=== PATIENT | female | born 1990 | race Caucasian/White ===

== ENCOUNTER 2022-03-13 09:57 | Outpatient (CLI) | payer BC, SELFPAY ==
[2022-03-13 15:22] LABS: Chlamydia DNA Amplified* NOT DETECTED (No Detected); GC DNA Amplified* NOT DETECTED (No Detected)
== END 2022-03-13 09:58 | disposition home or self-care (01) ==
PROVIDERS: Visit Provider Registered Nurse
DX: N89.8 Other specified noninflammatory disorders of vagina (principal)
CPT/HCPCS: 87252; 87491; 87591

== ENCOUNTER 2024-05-21 12:45 | Outpatient (CLI) | payer BC, SELFPAY ==
--- NOTE | 2024-05-21 13:00 | CRLHL7_ITS ---
For Patients: As a result of the Century Cures Act, medical imaging exams and procedure reports are released immediately into your electronic medical record. You may view this report before your referring provider. If you have questions, please contact your health care provider. INDICATION: Dating ultrasound. FINDINGS: A transabdominal and endovaginal pelvic ultrasound shows a single live intrauterine . Barataria-rump length=0.87 cm corresponding to an EGA of 6 weeks 6 days. cardiac rwhnzqox=750 beats per minute and regular. Probable small subchorionic hemorrhage. Probable corpus luteum cyst in the left ovary. No free fluid in the pelvis. Impression : 1. Single live intrauterine measuring 6 weeks 6 days. Dictated by Nemesio Nguyen MD @ 05/22/2024 10:34:43 AM (Electronically Signed)
== END 2024-05-21 12:46 | disposition home or self-care (01) ==
LOC: US 12:48
PROVIDERS: Visit Provider Obstetrics & Gynecology
DX: Z34.91 Encounter for supervision of normal pregnancy, unspecified, first trimester (principal); Z3A.01 Less than 8 weeks gestation of pregnancy
CPT/HCPCS: 76817

== ENCOUNTER 2024-05-21 14:00 | Outpatient (CLI) | payer BC, SELFPAY ==
[2024-05-21 20:37] LABS: Chlamydia DNA Amplified* NOT DETECTED (No Detected); GC DNA Amplified* NOT DETECTED (No Detected)
[2024-05-26 20:51] LABS: HPV Source Cervix; HPV, High Risk by TMA Not Detected
== END 2024-05-21 14:01 | disposition home or self-care (01) ==
PROVIDERS: Visit Provider Obstetrics & Gynecology
DX: Z34.91 Encounter for supervision of normal pregnancy, unspecified, first trimester (principal); Z12.4 Encounter for screening for malignant neoplasm of cervix; Z3A.01 Less than 8 weeks gestation of pregnancy
CPT/HCPCS: 87491; 87591; 87624; 87625; 88141; 88142

== ENCOUNTER 2024-06-17 13:40 | Outpatient (CLI) | payer BC, SELFPAY | END 2024-06-17 13:41 | disposition home or self-care (01) | PROVIDERS: Visit Provider Obstetrics & Gynecology | DX: Z34.81 Encounter for supervision of other normal pregnancy, first trimester (principal); Z67.11 Type A blood, Rh negative | CPT/HCPCS: 83020; 83021; 85660; 86592; 86703; 86704; 86706; 86762; 86787; 86803; 86850; 86900; 86901; 87086; 87340 ==

== ENCOUNTER 2024-08-21 12:53 | Outpatient (CLI) | payer BC, SELFPAY ==
--- NOTE | 2024-08-21 13:00 | CRLHL7_ITS ---
For Patients: As a result of the Century Cures Act, medical imaging exams and procedure reports are released immediately into your electronic medical record. You may view this report before your referring provider. If you have questions, please contact your health care provider. OBSTETRICAL ULTRASOUND ??? ANATOMY SURVEY INDICATION: anatomy survey. LMP: 03/31/2024 ROSALIE by LMP: 01/05/2025 GESTATIONAL AGE: 20 weeks 3 days TECHNIQUE: Real-time dennis-scale imaging of the fetus was performed transabdominal. FINDINGS: position: Breech Cervix: Visualized Technique: Transabdominal Length of closed cervix: 4.3 cm Placenta position: Anterior Technique: Transabdominal Placenta tip to internal os: 7.2 cm Umbilical cord: 3-vessel cord Placental insertion: Central Amniotic fluid: 5.2 cm SDP (greater than/equal to 2 to less than 8 cm) ANATOMY SURVEY: Observed Structures Cerebellum: 2.1 cm, 20 weeks 6 days Cisterna magna: 4.8 mm Nuchal fold: 4.7 mm Lateral ventricle: 8.8 mm CSP: Yes Midline falx: Yes Choroid plexus: Yes Spine: Yes Stomach: Yes Abdominal cord insert: Yes Urinary bladder: Yes Kidneys: Yes Diaphragm: Yes Nose/lips: Yes Orbital view: Yes Profile: Yes Upper extremities: Yes Lower extremities: Yes Hands: Yes Feet: Yes BIOMETRY BPD: 4.7 cm, 20 weeks 0 days, 33.7% HC: 17.4 cm, 19 weeks 6 days, 19.9% AC: 16.0 cm, 21 weeks 1 day, 67.2% FL: 3.3 cm, 20 weeks 1 day, 31.5% FL/AC: 20.3 HC/AC Ratio: 1.1 heart rate: 130 bpm age by this ultrasound: 20 weeks 3 days ROSALIE by this ultrasound: 01/05/2025 Estimated weight: 363.1 grams (0 pound 13 ounces) Percentile by ROSALIE: 53.6% IMPRESSION: 1) Concordance of clinical and sonographic dating. 2) Normal anatomic survey. 3) Circumvallate placenta is present. SHANTNAU SPICER M.D. Diagnostic Radiologist [employer] [email or web address] DW/Dictated by: Shantanu Spicer MD @ 08/22/2024 5:35:00 PM (Electronically Signed)
== END 2024-08-21 12:54 | disposition home or self-care (01) ==
LOC: US 12:53
PROVIDERS: Visit Provider Obstetrics & Gynecology
DX: Z34.92 Encounter for supervision of normal pregnancy, unspecified, second trimester (principal); Z3A.20 20 weeks gestation of pregnancy
CPT/HCPCS: 76805

== ENCOUNTER 2024-10-14 13:33 | Outpatient (CLI) | payer BC, SELFPAY ==
--- OUTSIDE RECORDS SUMMARY | 2024-10-15 00:33 | XMS_ITS | Clinical Summary ---
Author Organization [facility] Address [address] [place] [address] Care Team Providers Care Well Blower Name Role Phone None Reported, Pcp Primary Care Provider Unavail able Source Comments Patient records contain information from all sites at [facility]. For routine questions regarding patient records, call [phone] during business hours, M-F 8:00 AM - 5:00 PM Central Time. Record requests for emergency care only can be directed to [phone] at any time.[facility] Allergies Active Allergy Reactions Criticality Noted Date Comments Sulfa (Sulfonamide Antibiotics) Hives (Reselect Reaction) 03/25/2009 Medications triamcinolone (KENALOG) 0.1 % cream Apply 1 Application topically 2 (two) times a day for 10 days. Apply to rash on body. 30 g 4 Active metoclopramide (Reglan) 5 mg/5 mL solution Take 10 mL (10 mg total) by mouth 4 (four) times a day as needed for nausea or vomiting for up to 14 days. 480 mL 1 5 Active Active Problems Estimated Date of Delivery Comme nts Yes 01/05/2025 No known active problems Social History Tobacco Use Types Packs/Day Years Used Date Smoking Tobacco: Never Smokeless Tobacco: Never Tobacco Cessation:Counseling Given: Not Answered Alcohol Use Standard Drinks/Week Comments Never 0 (1 standard drink = 0.6 oz pur e alcohol) Estimated Date of Delivery Comme nts Yes 01/05/2025 Sex and Gender Information Value Date Recorded Sex Assigned at Not on file Legal Sex Female 12:41 PM CHANNEL MARKETING SPECIALIST Gender Identity Not on file Sexual Orientation Not on file Last Filed Vital Signs Vital Sign Reading Time Taken Comments Blood Pressure 103/63 05/31/2024 2:45 PM CHANNEL MARKETING SPECIALIST Pulse 91 05/31/2024 2:45 PM CHANNEL MARKETING SPECIALIST Temperature 37.1 C (98.8 F) 05/31/2024 2:45 PM CHANNEL MARKETING SPECIALIST Respiratory Rate 17 05/31/2024 2:45 PM CHANNEL MARKETING SPECIALIST Oxygen Saturation 99% 05/31/2024 2:45 PM CHANNEL MARKETING SPECIALIST Inhaled Oxygen Concentration - - Weight 56.2 kg (124 lb) 05/31/2024 12:15 PM CHANNEL MARKETING SPECIALIST Height 157.5 cm (5' 2) 03/19/2024 9:38 AM CHANNEL MARKETING SPECIALIST Body Mass Index 22.68 03/19/2024 9:38 AM CHANNEL MARKETING SPECIALIST Plan of Treatment Not on file Insurance [facility] Care Teams Well Blower Relationship Specialty Start Date End Date None Reported, Pcp PCP - General Family Medicine 07/05/23
--- OUTSIDE RECORDS SUMMARY | 2024-10-15 00:33 | XMS_ITS | Clinical Summary ---
Author Organization [facility] Address [address], [place] [address] Care Team Providers Care Animal Ride Attendant Name Role Phone Md GENIA Castañeda Primary Care Provider [phone] Source Comments You are receiving this document as you are listed as the primary care provider,follow-up provider, or the patient has been referred to you for consultation.This is in compliance with the Medicare and[facility] EHR Incentive Program,which states Providers who transition their patient to another setting of careor provider of care or refers their patient to another provider of care shouldprovide summary care record for each transition of care or referral. [facility] Allergies Active Allergy Reactions Criticality Noted Date Comments Sulfamethoxazole-Trimethoprim Rash 2008 Medications No known medications Active Problems Problem Noted Date Diagnosed Date Tobacco use 10/30/2016 Marijuana use 10/30/2016 Immunizations Immunization Administration Dates Next Due 9vHPV (Gardasil 9) 10/30/2016 TB Skin Test (PPD) 08/10/2009,07/20/2009 Td 12/19/2004 Tdap 10/30/2016 Family History Medical History Relation Name Comments Hypertension Father Thyroid Disorder Mother graves fibromyalgia Mother Cancer, Other Maternal Grandmother pancre atic fibromyalgia Maternal Grandmother Coronary Artery Disease Paternal Grandfather Diabetes, Type II Paternal Grandfather Hyperlipidemia Paternal Grandfather Hypertension Paternal Grandfather Diabetes, Type II Paternal Grandmother Asthma Sister 2 Cancer, Breast Negative Family History Cancer, Colon Negative Family History Stroke Negative Family History Relation Name Status Comments Father Alive Mother Alive Maternal Grandmother Paternal Grandfather Paternal Grandmother Sister 1 Alive Sister 2 Alive Social History Tobacco Use Types Packs/Day Years Used Date Smoking Tobacco: Former Cigarettes Q uit: 08/21/2018 Smokeless Tobacco: Never Alcohol Use Standard Drinks/Week Comments Not Currently 0 (1 standard drink = 0.6 oz pur e alcohol) few drinks per week Comments No Sex and Gender Information Value Date Recorded Sex Assigned at Not on file Legal Sex Female 1:43 PM CDT Gender Identity Not on file Sexual Orientation Not on file Last Filed Vital Signs Vital Sign Reading Time Taken Comments Blood Pressure 118/68 08/30/2018 9:51 AM CDT Pulse 63 08/30/2018 9:51 AM CDT Temperature 36.7 C (98.1 F) 04/04/2009 1:11 PM CONTRACT ANALYST C: 36.7 C Respiratory Rate - - Oxygen Saturation - - Inhaled Oxygen Concentration - - Weight 48.5 kg (107 lb) 08/30/2018 9:51 AM CDT Height 157.5 cm (5' 2) 10/30/2016 1:29 PM CDT Body Mass Index 19.57 10/30/2016 1:29 PM CDT Plan of Treatment Health Maintenance Due Date Last Done Comments Hep C Screening (Preventive Services) 1992 HepB Vaccine (1) 08/03/2011 HPV Vaccine (2 - 3-dose series) 11/27/2016 10/30/2016 Adult Preventive Visit 10/30/2018 10/30/2016 Cervical Cancer Screening 10/31/20192016, 06/02/2009 COVID-19 Vaccine (1 - 2023-2 5 season) 2023 Influenza Vaccine (Season Ended) 2024 DTaP/Tdap/Td Vaccine (3 - Tdap) 10/30/2026 10/30/2016, 12/19/2004 Zoster/Shingles Vaccine (1 o f 2) 2042 HIV Screening (Preventive Services) Completed 10/30/2016 HepA Vaccine Aged Out No longer eligi ble based on patient's age to complete this topic Hib Vaccine Aged Out No longer eligi ble based on patient's age to complete this topic IPV (Polio) Vaccine Aged Out No longe r eligible based on patient's age to complete this topic MCV4 Vaccine Aged Out No longer eligi ble based on patient's age to complete this topic Meningococcal B Vaccine Aged Out No l onger eligible based on patient's age to complete this topic Pneumococcal Vaccine Aged Out No long er eligible based on patient's age to complete this topic Procedures Procedure Name Priority Date/Time Associated Diagnosis Comments HIV-1 P24 AND HIV-1/HIV-2 ANTIBODIES Routine 10/30/2016 2:37 PM CDT Screen for STD (sexually transmitted disease) ANATOMICAL PATH LIQUID BASED Routine 10/30/2016 2:20 PM CDT from Last 3 Months or Most Recently Relevant to Health Maintenance Results * HIV-1 p24 AND HIV-1/HIV-2 ANTIBODIES (10/30/2016 2:37 PM CDT) HIV-1 p24 Ag and HIV-1/HIV-2 Ab Nonreactive Nonreactive PN SOFT 10/30/2016 2:37 PM CDT 10/30/2016 6:41 PM CDT Narrative PN SOFT - 10/30/2016 7:28 PM CDT Performed at [address] [address] CLIA number [id number] us Adnreea Cardenas PA-C LAB_1 Final Result PN SOFT [address] [place] [id number] * Pap Smear (10/30/2016 2:20 PM CDT) 10/30/2016 2:20 PM CDT Narrative PN SOFT - 11/02/2016 12:19 PM CDT FINAL GYNECOLOGICAL CYTOLOGY REPORT Pathology #: [id number] Date Obtained: 10/30/2016 Date Received: 10/31/2016 INTERPRETATION/RESULTS: Negative for Intraepithelial Lesion or Malignancy. SPECIMEN ADEQUACY: Satisfactory for Evaluation. Endocervical cells/transformation zone component present. Verified on 11/02/2016 by CYNTHIA DESOUZA(ASCP) (electronic signature) CLINICAL NOTES: Abnormal bleeding: No, LMP: 10/18/2016, Menstrual status: None Apply, Current form of therapy: None apply LIQUID BASED PAP SMEAR SPECIMEN TYPE: ROUTINE CERVICAL PAP TEST PLEASE NOTE: The pap smear is a screening test designed to aid in the detection of cervical cancer and its precursor lesions. It is not a diagnostic procedure and should not be used as the sole means of detecting cervical cancer. Both false-positive and false-negative reports may occur. Performed at [address] [address] Andreea Cardenas PA-C LAB_1 Final Result [address] [address] from Last 3 Months or Most Recently Relevant to Health Maintenance [place] [place] [address] Care Teams Animal Ride Attendant Relationship Specialty Start Date End Date Md Castañ[place] [address] PCP - General 07/24/10
--- OUTSIDE RECORDS SUMMARY | 2024-10-15 00:33 | XMS_ITS | Clinical Summary ---
Author Organization [facility] Address [address] [place] [address] Care Team Providers Care Metal Dealer Name Role Phone Pcp, No Primary Care Provider Melanie Bullard Unavailable [phone] Allergies Active Allergy Reactions Criticality Noted Date Comments Sulfa (Sulfonamide Antibiotics) Hives 06/21 Medications SUMAtriptan NASAL (IMITREX) 20 mg/actuation sprayIndication s:Migraine syndrome Usual dose is 1 spray into SINGLE nostril, may repeat in 2 hours as needed. Maximum dose 40 mg in 24 hours. 6 Each 3 07/12/2023 Active ZOLMitriptan (ZOMIG) 5 mg nasal sprayIndication s:Migraine syndrome Inhale 1 [place] into affected nostril(s) every 2 hours if needed for Migraine. Max dose: 10mg in 24 hrs 6 Each 07/25/2023 Active Active Problems Problem Noted Date Diagnosed Date Pityriasis rosea 07/12/2023 Migraine syndrome 07/12/2023 Social History Tobacco Use Types Packs/Day Years Used Date Smoking Tobacco: Never Smokeless Tobacco: Never Tobacco Cessation:Counseling Given: Not Answered Alcohol Use Standard Drinks/Week Comments Not Currently 0 (1 standard drink = 0.6 oz pur e alcohol) occ Social Connections Answer Date Recorded Do you often feel lonely or isolated from those around you? 0 07/12/2023 Financial Resource Strain Answer Date R ecorded Difficulty of Paying Living Expenses 3 07/12/2023 Difficulty of Paying Living Expenses Not on file 07/12/2023 Food Insecurity Answer Date Recorded Do you worry your food will run out before you are able to buy more? 1 07/12/2023 Transportation Needs Answer Date Record ed Does lack of transportation keep you from medica l appointments? 1 07/12/2023 Does lack of transportation keep you from work, meetings or getting things that you need? 1 07/12/2023 Housing Stability Answer Date Recorded What is your housing situation today? 1 07/12/2023 Utilities Answer Date Recorded Do you have trouble paying f or utilities (for example, heat, electricity, water, phone)? 1 07/12/2023 Comments Unknown Sex and Gender Information Value Date Recorded Sex Assigned at Not on file Legal Sex Female 5:26 AM PERFECT BINDER FEEDER OFFBEARER Gender Identity Not on file Sexual Orientation Not on file Obstetrics History Last Filed Vital Signs Vital Sign Reading Time Taken Comments Blood Pressure 130/70 07/12/2023 2:26 PM CDT Pulse 84 07/12/2023 2:26 PM CDT Temperature - - Respiratory Rate - - Oxygen Saturation 98% 07/12/2023 2:26 PM CDT Inhaled Oxygen Concentration - - Weight 63 kg (139 lb) 07/12/2023 2:26 PM CDT Height 157.5 cm (5' 2) 07/12/2023 2:26 PM CDT Body Mass Index 25.42 07/12/2023 2:26 PM CDT Plan of Treatment Health Maintenance Due Date Last Done Comments Tdap 08/03/2003 Depression screening for age 12+ 2004 HIV for age 15-65 08/03/2007 Hepatitis C screening for ag e 18-79 2010 Hepatitis B series for 19+ ( 1 of 3 - 19+ 3-dose series) 08/03/2011 Tetanus booster 2012 Pap test for age 21-65 06/05/2022 06/05/2019 COVID-19 vaccine series (2023- season) 2023 BMI (ht and wt on same day) for age 18+ 07/11/2024 07/12/2023 Influenza Vaccine (Season Ended) 2024 Pneumococcal series for age 6-49 Aged Out No longer eligible based on patient's age to complete this topic Procedures Procedure Name Priority Date/Time Associated Diagnosis Comments MS SQL SERVER DEVELOPER THIN PREP PAP SCREEN IMAGED Routine 06/05/2019 9:00 AM PERFECT BINDER FEEDER OFFBEARER from Last 3 Months or Most Recently Relevant to Health Maintenance Results * MS SQL SERVER DEVELOPER THIN PREP PAP SCREEN IMAGED (06/05/2019 9:00 AM PERFECT BINDER FEEDER OFFBEARER) Case Report Gynecologic Cytology Report Case: [id number] Authorizing Provider: Tami Nichols PA-C Collected: 06/05/2019 0900 Ordering Location: [facility] Received: 06/05/2019 1644 First Screen: Ben Mcginnis Specimen: MS SQL SERVER DEVELOPER ThinPrep Vial Screening, Cervical/Vaginal 06/17/2019 10:33 AM PERFECT BINDER FEEDER OFFBEARER [facility] INTERPRETATION/ RESULT NEGATIVE FOR INTRAEPITHELIAL LESION OR MALIGNANCY (NIL) (none) 06/17/2019 10:33 AM PERFECT BINDER FEEDER OFFBEARER [facility] at 1033 PERFECT BINDER FEEDER OFFBEARER SPECIMEN ADEQUACY Satisfactory for evaluation No endocervical component seen 06/17/2019 10:33 AM PERFECT BINDER FEEDER OFFBEARER [facility] HPV REQUEST HPV if ASCUS 06/17/2019 10:33 AM PERFECT BINDER FEEDER OFFBEARER [facility] Menstrual Status 06/17/2019 10:33 AM PERFECT BINDER FEEDER OFFBEARER [facility] Additional Information 06/17/2019 10:33 AM PERFECT BINDER FEEDER OFFBEARER [facility] Comment: Interpreted at [facility] - [address] [place] [address], [place] [address] Automated Review Successful 06/17/2019 10:33 AM PERFECT BINDER FEEDER OFFBEARER [facility] Comment:Specimen processed s uccessfully by automated television picture tube rebuilder device, ThinPrep Imaging System, [employer] Note The pap test is a screening technique, not a diagnostic procedure. It is used primarily to screen for squamous cancers and precursor lesions. Published studies have shown that it is subject to both false negative and false positive results. The pap test should not be used as the sole means to diagnose or exclude pre-malignant and malignant lesions. 06/17/2019 10:33 AM PERFECT BINDER FEEDER OFFBEARER [facility] Other (Cervical/Vagina l) 06/05/2019 9:00 AM PERFECT BINDER FEEDER OFFBEARER 06/05/2019 4:44 PM PERFECT BINDER FEEDER OFFBEARER july Simone CASANOVA PATHOLOGY/CYTOLOGY Final R esult [facility] [address] [place] [address], [place] from Last 3 Months or Most Recently Relevant to Health Maintenance Insurance [employer] Member Subscriber Plan / Payer (Ef fective 2023-Present) Name:Chelo Sellers Relation to Subscriber:Self Name:Chelo Sellers Payer ID:[id number] (NAIC) Group ID:[id number] Type:Not on file Address: [place] [id number] [employer] Member Subscriber Plan / Payer (Ef fective 2018-Present) Name:Chelo Sellers Relation to Subscriber:Self Name:Chelo Sellers Payer ID:[id number] (NAIC) Group ID:[id number] Type:Not on file Address: [place] [id number] Care Teams Metal Dealer Relationship Specialty Start Date End Date Pcp, No . PCP - General 01/14/19 Melanie Li PA . 01/14/19
--- OUTSIDE RECORDS SUMMARY | 2024-10-15 00:33 | XMS_ITS | Clinical Summary ---
Author Organization [facility] Address [address] [place] [address] Care Team Providers Care Flanger Name Role Phone No Ref-Primary, Physician Primary Care Provider Social History Tobacco Use Types Packs/Day Years Used Date Smoking Tobacco: Never Assessed Adolescent Education Answer Date Record ed Getting School Help Needed Not on file 01/12 Comments No Sex and Gender Information Value Date Recorded Sex Assigned at Not on file Legal Sex Female 10:18 AM SWABBER Gender Identity Not on file Sexual Orientation Not on file Plan of Treatment Not on file Care Teams Flanger Relationship Specialty Start Date End Date No Ref-Primary, Physician PCP - General 05/18/20
--- OUTSIDE RECORDS SUMMARY | 2024-10-15 00:33 | XMS_ITS | Data Portability ---
Author Organization [place] - [facility], autoContract - [facility] [employer] [facility] Address [address] [place] [address] Assessment Encounter Date Assessment Date Assessment LastModified by Organization Details LastModified Time 07/17/2024 07/17/2024 ASSESSMENT: Patient is a good candidate for conservative care and the prognosis is for a favorable outcome that achieves the patients' goals. We discussed etiology, activity modifications, home care, and other treatment options. Initially, it is recommended that the patient receive in-office treatment 1 times per week for 8 weeks at which time a re-evaluation will be performed to determine an appropriate change in plan. Initially, treatment will focus on joint manipulation to restore range of motion and reduce pain. We will slowly progress to therapeutic exercises and activities to improve function, strength, and stability may also be used as warranted. If the patient is not responding as expected, more invasive procedures will be discussed along with a referral. All considerations above were discussed with the patient and questions answered to satisfaction. If the patient should have any additional questions, or should the condition evolve or worsen, the patient should not hesitate to contact our office. ecram Not available 07/17/2024 11:49:21 07/27/2024 07/27/2024 ASSESSMENT: Patient is a good candidate for conservative care and the prognosis is for a favorable outcome that achieves the patients' goals. We discussed etiology, activity modifications, home care, and other treatment options. Initially, it is recommended that the patient receive in-office treatment 1 times per week for 8 weeks at which time a re-evaluation will be performed to determine an appropriate change in plan. Initially, treatment will focus on joint manipulation to restore range of motion and reduce pain. We will slowly progress to therapeutic exercises and activities to improve function, strength, and stability may also be used as warranted. If the patient is not responding as expected, more invasive procedures will be discussed along with a referral. All considerations above were discussed with the patient and questions answered to satisfaction. If the patient should have any additional questions, or should the condition evolve or worsen, the patient should not hesitate to contact our office. ecram Not available 07/27/2024 15:18:53 08/17/2024 08/17/2024 ASSESSMENT: Patient is a good candidate for conservative care and the prognosis is for a favorable outcome that achieves the patients' goals. We discussed etiology, activity modifications, home care, and other treatment options. Initially, it is recommended that the patient receive in-office treatment 1 times per week for 8 weeks at which time a re-evaluation will be performed to determine an appropriate change in plan. Initially, treatment will focus on joint manipulation to restore range of motion and reduce pain. We will slowly progress to therapeutic exercises and activities to improve function, strength, and stability may also be used as warranted. If the patient is not responding as expected, more invasive procedures will be discussed along with a referral. All considerations above were discussed with the patient and questions answered to satisfaction. If the patient should have any additional questions, or should the condition evolve or worsen, the patient should not hesitate to contact our office. ecram Not available 08/17/2024 15:17:27 08/21/2024 08/21/2024 ASSESSMENT: Patient is a good candidate for conservative care and the prognosis is for a favorable outcome that achieves the patients' goals. We discussed etiology, activity modifications, home care, and other treatment options. Initially, it is recommended that the patient receive in-office treatment 1 times per week for 8 weeks at which time a re-evaluation will be performed to determine an appropriate change in plan. Initially, treatment will focus on joint manipulation to restore range of motion and reduce pain. We will slowly progress to therapeutic exercises and activities to improve function, strength, and stability may also be used as warranted. If the patient is not responding as expected, more invasive procedures will be discussed along with a referral. All considerations above were discussed with the patient and questions answered to satisfaction. If the patient should have any additional questions, or should the condition evolve or worsen, the patient should not hesitate to contact our office. ecram Not available 08/21/2024 16:31:46 Plan of Treatment Reminders Order Date Submit Date Provider Last Modified By Organization Details Last Modified Time Details Appointments None record ed. Lab None record ed. Referral None record ed. Procedures None record ed. Surgeries None record ed. Imaging None record ed. Medication Orders None record ed. Patient TargetsNo targets recorded. Patient InstructionsNo instructions recorded. Reason for Referral None Reported. Problems Name Problem SNOMED Code Status Onset Date Resolution Date Notes Provider Name and Address Organization Details Recorded Time Lumbar segmental dysfunction 665563151 Active 2024 Klaus Ye DC [address], [place], [address] , [facility] 5 11:49:25 Neck pain 84132711 Active 2024 Klaus Ye DC [address], [place], [address] , [facility] 5 11:49:25 Thoracic segmental dysfunction 357643656 Active 2024 Klaus Ye DC [address], [place], [address] , [facility] 5 11:49:25 Cervical segmental dysfunction 751604004 Active 2024 Not Available [facility] 11:43:11 Problem Notes None recorded. Procedures Surgical History Date Name Laterality Status Provider Name and Address Organization Details Recorded Time 5 62960: Spinal manipulation , 3 to 4 regions completed Klaus Ye DC [address], [place], [address], [facility] 08/21/2024 16:31:46 5 83736: Spinal manipulation , 3 to 4 regions completed Klaus Ye DC [address], [place], [address], [facility] 08/17/2024 15:17:27 5 81306: Spinal manipulation , 3 to 4 regions completed Klaus Ye DC [address], [place], [address], [facility] 07/27/2024 15:18:53 5 27435: Spinal manipulation , 3 to 4 regions completed Klaus Ye DC [address], [place], [address], [facility] 07/17/2024 11:49:24 Imaging Results None recorded. Procedure Notes None recorded. Medical Equipment None Reported. Vitals None Recorded Social History None recorded. Functional Status None recorded. Mental Status None recorded. Family History Nothing Reported. Medical History No medical history recorded. Gynecological HistoryNo gynecological history recorded. Obstetrics History GPAL:G 0 P 0 0 0 0 Past Encounters Encounter ID Performer Location Encounter Start Date Encounter Closed Date Diagnosis/Indication Diagnosis SNOMED-CT Code Diagnosis ICD10 Code Diagnosis Note [id number] KAYLEE Jacobson [facility] [address] [place] [address] 07/17/2024 11:21:10 07/17/2024 12:12:47 Cervical segmental dysfunction 362805261 M99.01 Neck pain 93574098 M54.2 Thoracic s egmental dysfunction 996925766 M99.02 Lumbar seg mental dysfunction 891615585 M99.03 [id number] [facility] [address] [place] [address] 07/27/2024 15:14:28 07/27/2024 15:24:16 Cervical segmental dysfunction 149659461 M99.01 Neck pain 74202676 M54.2 Thoracic s egmental dysfunction 771952341 M99.02 Lumbar seg mental dysfunction 430649130 M99.03 [id number] [facility] [address] [place] [address] 08/17/2024 15:13:53 08/17/2024 16:47:06 Cervical segmental dysfunction 283304854 M99.01 Neck pain 37766527 M54.2 Thoracic s egmental dysfunction 678461556 M99.02 Lumbar seg mental dysfunction 266487017 M99.03 [id number] [facility] [address] [place] [address] 08/21/2024 16:22:00 08/21/2024 16:53:20 Cervical segmental dysfunction 880010986 M99.01 Neck pain 49036494 M54.2 Thoracic s egmental dysfunction 848371340 M99.02 Lumbar seg mental dysfunction 790336829 M99.03 Health Concerns Section Related Observation LastModified by Organization Detai ls LastModified Time None Recorded Concern Status LastModified by Organization Details LastModified Time None Recorded Advance Directives Directive None Recorded Payers Insurance Date Sequence Insurance Name Policy Number Policy Chavis Covered Member ID Chavis Member ID Guarantor Name 08/21/2024 1 [place] [id number] Chelo Adilene Tellezny [id number] Chelo Sellers 07/20/2024 1 [place] [id number] Chelo Sellers [id number] Chelo Sellers 07/20/2024 2 [place] [id number] Chelo Sellers [id number] Chelo Sellers Notes Date Note Type Note Provider Name and Address Organization Details Recorded Time 07/17/2024 text/html HPI - Cervical SpineReported bypatient.Location: left Quality:aching Severity:moderate Duration:2 weeks Timing:gradual Alleviating Factors:ice Aggravating Factors:sitting Associated Symptoms:no numbness/tingling Klaus Héctor Cram, DC [address], [place], [address], [facility] 07/17/2024 12:01:46 07/27/2024 text/html HPI - Cervical SpineReported bypatient.Location: left Quality:aching Severity:moderate Duration:2 weeks Timing:gradual Alleviating Factors:ice Aggravating Factors:sitting Associated Symptoms:no numbness/tingling Klaus Héctor Cram, DC [address], [place], [address], [facility] 07/27/2024 15:20:15 08/17/2024 text/html HPI - Cervical SpineReported bypatient.Location: left Quality:aching Severity:moderate Duration:2 weeks Timing:gradual Alleviating Factors:ice Aggravating Factors:sitting Associated Symptoms:no numbness/tingling Klaus Héctor Cram, DC [address], [place], [address], [facility] 08/17/2024 15:18:54 08/21/2024 text/html HPI - Cervical SpineReported bypatient.Location: left Quality:aching Severity:moderate Duration:2 weeks Timing:gradual Alleviating Factors:ice Aggravating Factors:sitting Associated Symptoms:no numbness/tingling Klaus Héctor Ye DC [address], [place], [address], [facility] 08/21/2024 16:32:57 OBGyn Episode No OBEpisode recorded.
== END 2024-10-14 13:34 | disposition home or self-care (01) ==
LOC: US 13:34
PROVIDERS: Visit Provider Registered Nurse
DX: O43.113 Circumvallate placenta, third trimester (principal); Z3A.28 28 weeks gestation of pregnancy
CPT/HCPCS: 76811

== ENCOUNTER 2024-10-15 14:46 | Outpatient (CLI) | payer BC, SELFPAY | END 2024-10-15 14:47 | disposition home or self-care (01) | LOC: NFLDREF 14:47 | PROVIDERS: Visit Provider Obstetrics & Gynecology | DX: Z34.83 Encounter for supervision of other normal pregnancy, third trimester (principal) | CPT/HCPCS: 86592; 86850; J2791 ==

== ENCOUNTER 2024-11-27 12:45 | Outpatient (CLI) | payer BC, SELFPAY ==
--- NOTE | 2024-11-27 13:00 | CRLHL7_ITS ---
For Patients: As a result of the Century Cures Act, medical imaging exams and procedure reports are released immediately into your electronic medical record. You may view this report before your referring provider. If you have questions, please contact your health care provider. OB ULTRASOUND FOLLOW-UP/LIMITED, 11/27/2024 CLINICAL HISTORY: Circumvallate placenta. COMPARISON: 10/14/2024, 08/21/2024, 05/21/2024. TECHNIQUE: Real time dennis scale imaging of the fetus was performed. Transabdominal imaging performed. FINDINGS: ROSALIE by LMP: 12/26/2024. GA: 34 weeks 3 days. Cervix: Not visualized. Position: Vertex. Amniotic Fluid: 6.8 cm SDP. Placenta: Technique: TA. Placenta Position: Anterior. Dopplers: Heart Rate: 134 bpm. BIOMETRY: BPD: 9.1 cm, 36 weeks 5 days. 95% HC: 32.1 cm, 36 weeks 2 days. 61% AC: 31.7 cm, 35 weeks 5 days. 86% FL: 6.5 cm, 33 weeks 5 days. 23% FL/AC Ratio: 20.62% HC/AC Ratio: 1.01. EFW: 2645 grams, 5 lb 13 oz. Age by this US: 35 weeks 4 days. RSOALIE by this US: 12/28/2024. Percentile by ROSALIE: 71% IMPRESSION: 1. Sonographic gestational age 35 weeks 4 days and sonographic due date 12/28/2024. Sonographic age is 8 days ahead of the clinical age. 2. Estimated weight 71st percentile. Abdominal circumference 86th percentile. Shantanu Sexton M.D. Diagnostic Radiologist [email or web address] ERMA/avel: Transcribed: 9:00 am DW/Dictated by: Shantanu Sexton MD @ 11/28/2024 7:08:00 AM (Electronically Signed)
== END 2024-11-27 12:46 | disposition home or self-care (01) ==
LOC: US 12:46
PROVIDERS: Visit Provider Obstetrics & Gynecology
DX: O43.113 Circumvallate placenta, third trimester (principal); Z3A.34 34 weeks gestation of pregnancy
CPT/HCPCS: 76816; 85018

== ENCOUNTER 2024-12-14 13:47 | Outpatient (CLI) | payer BC, SELFPAY ==
[2024-12-15 14:30] LABS: Strep B DNA Probe POSITIVE (Negative)
[2024-12-15 16:09] LABS: Strep B Susceptibility Needed? No
== END 2024-12-14 13:48 | disposition home or self-care (01) ==
LOC: NFLDREF 13:47
PROVIDERS: Visit Provider Obstetrics & Gynecology
DX: Z34.83 Encounter for supervision of other normal pregnancy, third trimester (principal)
CPT/HCPCS: 87081; 87653

== ENCOUNTER 2025-01-12 06:16 | Inpatient (IN) | payer BC, SELFPAY ==
[2025-01-12] VITALS (23 sets, daily range): BP systolic 120–145; BP diastolic 59–80; PULSE 71–181; RESP 16–22; TEMP 36.6–36.9; O2SAT 81–100; BMI 30.2
[2025-01-12 07:31] LABS: Hematocrit* 34.4 % (33.0-51.0); Hemoglobin* 11.3 gm/dL (12.0-16.0); Immature Granulocytes Abs Auto 0.03 K/uL (0.00-0.30); Immature Granulocytes Pct Auto 0.6 %; Lymphocytes Absolute Auto 1.50 K/uL (0.90-2.90); Mean Corpuscular HGB Conc 33 gm/dL (32-36); Mean Corpuscular Hemoglobin 28 pg (26-34); Mean Corpuscular Volume 85 fL (80-100); RDW Coefficient of Variation % 14.1 % (11.5-15.5); Red Blood Count* 4.03 m/uL (4.00-5.20); Slide Review Reflex No; White Blood Count* 5.24 K/uL (4.50-11.00)
[2025-01-12] MEDS: LACTATED RINGERS 1000 ML 1,000 ML 125 ML IV (07:43)
[2025-01-12] MEDS: AMPICILLIN 2 GM in 0.9 % SODIUM CHLORIDE Mini-bag 100 ML IVPB (07:44)
[2025-01-12] MEDS: OXYTOCIN 30 unit/500 ML in NS 30 UNIT/500 ML BAG IVPB (07:44)
--- NOTE | 2025-01-12 09:21 | W.PM.LDBA ---
Subjective History of Present Illness Narrative: Patient is being admitted to Labor and Delivery for postdates induction of labor. She is a 34 year old at 41 weeks, 0 days gestation. Her full history and physical was dictated by Dr. Dietrich on 12/14/2024. Please see this for details. Specific Issues/Plans H&P: CGM 12/14/24 # Circumvallate placenta: - Level 2: See below - Growth US at 34 weeks: EFW: 71%, normal growth #Anemia 11/27/24: hemoglobin 10.9mg/dL # History of gestational hypertension on first Start baby ASA after 12 weeks # Rh Negative Rhogam at 28 weeks- given 10/15/24 Rhogam PP [] #GBS positive - ampicillin intrapartum #Hx. 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 Patient is not interested in any type of genetic screening testing #History of THC use prior to # Hyperemesis gravidarum Lost 7 pounds since beginning of , s/p ED [place] visit on 05/20/24 Vitamin B6, Doxylamine, Reglan ordered 05/21/24 Imagin10/14/24:Level 2:Montoya at 28w1d gestational age.No anomalies commonly detected by ultrasound were identified in the detailed anatomic survey within the limits of ultrasound. Growth parameters and estimated weight were consistent with gestational age predicted by assigned ROSALIE.The amniotic fluid volume appeared normal.On transabdominal imaging the cervix appeared long and closed. The placenta appears circumvallate on today's assessment.We would recommend a growth ultrasound with radiology at [place] at 34 weeks to re-evaluate growth. Delivery timing and route per routine obstetric indication. 11/27/24: ?EFW 71st percentile, AC 86 percentile. BPD 95th percentile. SDP 6.8 cm.? Vaccinations: COVID: declines Flu: [] Tdap: 10/30/24 32 week mental health: Normal GBS positive Last pap: Collected first OB yuliana. OB - Problem Based A/P Additional Plan (1) : Status: Acute Plan Postdates with favorable cervix. Pitocin for induction of labor. Reassuring tracing, category I. Continuous monitoring while on pitocin. GBS positive: ampicillin Q 4 hrs Delivery/Labor/Induction Plan Plan: induction Induction method: per pitocin protocol OB Exam Physical Exam Vital signs: Temp Pulse Resp BP Pulse Ox 98.2 F 77 16 120/79 99 01/12/25 06:58 01/12/25 06:44 01/12/25 06:58 01/12/25 06:44 01/12/25 08:34 Narrative: Physical exam: General: No acute distress Psych: Alert and oriented x3, full affect HEENT: Normocephalic, atraumatic Heart: Regular rate and rhythm, no murmur rub or gallop Lungs: Clear to auscultation bilaterally Abdomen: soft, nontender, gravid, cephalic lie Lower extremities: No edema or erythema Pelvic exam: Not examined
[2025-01-12] MEDS: AMPICILLIN 1 GM in 0.9 % SODIUM CHLORIDE Mini-bag 100 ML IVPB (11:44)
--- NOTE | 2025-01-12 15:00 | W.PM.VAGDEL1 ---
Procedure Delivery date: 01/12/25 Procedure Done: Global Procedure Details: The patient is a 34 year-old G 3 P 1-0-1-1 woman admitted on 01/12/2025 at 41 Weeks, 0 Days gestation for postdates induction of labor.? Last cervical exam prior to admission was 2 cm/50 % effaced/-2 station. She arrived with membranes intact and fetus in cephalic lie.? heart rate demonstrated baseline 135 bpm with moderate variability, positive accelerations, negative decelerations; a category 1 tracing.? She had Pitocin for induction of labor. ? Labor Analgesia:? None Labor onset:? 10:35 a.m. ? Complete:? 1:15 p.m. AROM was performed at this time with clear fluid noted. ? Pushing:? 1:16 p.m. ? heart tones during second stage were notable for some decelerations into the 100s. She changed positions during pushing, 1st in hands and knees position, then squatting, and then on her back for ? At 1:26 p.m. a viable female delivered in vertex KIRILL presentation over intact perineum via spontaneous vaginal delivery.? was placed on maternal abdomen.? Cord was clamped and cut after it ceased to pulse.? Nose and mouth were bulb suctioned.? weight pending.? 8 at 1 minute and 9 at 5 minutes.? Shoulder dystocia: No.? Nuchal cord: No. ? Placenta delivered spontaneously and complete at 1:32 p.m. with a 3 vessel cord. ? Mother and were stable after delivery. ? Lacerations:? None ? Blood loss: 150 mL. Blood loss measurement type: QBL ? Sponge and needles counts are correct. Intrapartal Events: Labor Induction Delivery monitor: external FHT Route of delivery: Episiotomy description: None Laceration description: None Estimated blood loss (mL): 150 Anesthesia type: None Disposition: floor Complications: None Gender: Female presentation: vertex Placental Delivery Description: Spontaneous Cord Description: 3 Vessels
[2025-01-13 00:45] VITALS: BP 125/82; PULSE 80; RESP 16; TEMP 37; O2SAT 98
[2025-01-13 05:25] VITALS: BP 126/70; PULSE 87; RESP 16; TEMP 36.6; O2SAT 97
[2025-01-13 06:26] LABS: Hemoglobin* 9.7 gm/dL (12.0-16.0)
--- NOTE | 2025-01-13 07:25 | P.DS_ITS ---
DS: Providers Provider Date Seen: 01/13/25 Date of admission: 01/12/25 06:16 Primary care physician: Not a Local Provider Admitting Clinician: Catrina Arriaza MD Attending Physician on discharge: Cindi BUTLER Date of Discharge: 01/13/25 DS: Diagnosis Discharge Diagnosis (1) care and examination of lactating mother: Status: Acute Exam Narrative: Exam Narrative: GENERAL APPEARANCE:? normal affect, alert, no distress MOOD:? appropriate CHEST:? clear to auscultation HEART:? regular rate and rhythm ABDOMEN:? soft, non-tender the uterine fundus is At Umbilicus, Midline and is appropriate for the stage of recovery. PERINEUM:?deferred EXTREMITIES:? normal and minimal edema Const: Vital Signs, click to edit/add: Vital Signs - 24 hr 01/12/25 08:24 01/12/25 08:29 01/12/25 08:34 Temperature Pulse Rate Pulse Rate [Pulse Oximeter] Respiratory Rate Blood Pressure Blood Pressure [Ri ght Arm] Pulse Oximetry 100 99 99 Oxygen Delivery [facility] 01/12/25 10:59 01/12/25 10:59 01/12/25 13:00 Temperature 98.2 F 97.9 F Pulse Rate 82 Pulse Rate [Pulse Oximeter] Respiratory Rate 18 Blood Pressure 130/78 Blood Pressure [Ri ght Arm] Pulse Oximetry 94 Oxygen Delivery [facility] 01/12/25 13:37 01/12/25 13:52 01/12/25 14:06 Temperature Pulse Rate 79 77 71 Pulse Rate [Pulse Oximeter] Respiratory Rate Blood Pressure 124/72 128/80 124/70 Blood Pressure [Ri ght Arm] Pulse Oximetry [facility] 01/[facility] 14:21 01/12/25 14:35 01/12/25 14:36 Temperature 97.9 F Pulse Rate 80 84 Pulse Rate [Pulse Oximeter] Respiratory Rate 18 Blood Pressure 131/71 132/62 Blood Pressure [Ri ght Arm] Pulse Oximetry [facility] 01[facility]12/[facility] 14:50 01/12/25 14:50 01/12/25 14:51 Temperature Pulse Rate 81 Pulse Rate [Pulse Oximeter] Respiratory Rate 18 Blood Pressure 134/77 Blood Pressure [Ri ght Arm] Pulse Oximetry 81 L [facility] 01/12/25 15:06 01/12/25 15:21 01/12/25 15:39 Temperature Pulse Rate 85 84 82 Pulse Rate [Pulse Oximeter] Respiratory Rate Blood Pressure 131/59 L 145/76 H 129/79 Blood Pressure [Ri ght Arm] Pulse Oximetry Oxygen Delivery [facility] 01/12/25 16:55 01/12/25 16:57 01/12/25 16:57 Temperature 98.4 F Pulse Rate 74 Pulse Rate [Pulse Oximeter] Respiratory Rate Blood Pressure 125/67 Blood Pressure [Ri ght Arm] Pulse Oximetry 98 Oxygen Delivery [facility] 01/12/25 17:10 01/12/25 19:56 01/13/25 00:45 Temperature 98.4 F 98.1 F 98.6 F Pulse Rate Pulse Rate [Pulse Oximeter] 79 100 80 Respiratory Rate 16 22 16 Blood Pressure Blood Pressure [Ri ght Arm] 125/67 122/70 125/82 Pulse Oximetry 98 95 98 Oxygen Delivery [facility] Room Air Room Air Room Air 01/13/25 05:25 Temperature 98 F Pulse Rate Pulse Rate [Pulse Oximeter] 87 Respiratory Rate 16 Blood Pressure Blood Pressure [Ri ght Arm] 126/70 Pulse Oximetry 97 Oxygen Delivery [facility] Room Air OB - DS: Summary Hospital Course Hospital Course: Chelo is a 34 y.o. G 3 now P 3003 who was admitted to L & D for IOL for postterm.? She had a NVD that was uncomplicated. The patient feels well.? The pain is well controlled with current medications.? She has no new complaints.? She is breast feeding and reports things are going well. the patient has done well.? Vitals have been stable. She has been normotensive.? She has remained afebrile.? Has a good appetite, is tolerating a general diet.? She is voiding without difficulty.? She is passing gas and has not had a bowel movement.? She is ambulating and denies any dizziness.? Has small amount of rubra lochia. She is planning condoms for prevention.? ?? Problems: none? ?? plan:? Discharge home with baby.? Follow up in 2 weeks and 6 weeks.? , may see if needed? Hgb 9.7. ? Peripartum Data delivery method: Vaginal Laceration description: None Episiotomy description: None complications: none Infant Gender: Female Infant Discharge Plan: Home Status at Discharge Functional status at discharge: independent ambulation Overall status at discharge: patient is progressing back to baseline Time Spent with Patient Time attestation: Total time spent providing and/or coordinating discharge services: Time spent: Less than 30 minutes Discharge Plan Discharge Disposition: Home, Self-Care Date of Admission: 01/12/25 06:16 Attending Provider on Discharge: Lesa Valenzuela Primary Care Provider: Provider,Not a Local Condition: Stable Anticipated Discharge Date/Time: 01/13/25 15:00 Discharge Medications: New docusate sodium 50 mg/5 mL liquid 100 mg PO .bid prn Qty: 1000 0RF ibuprofen 600 mg Tablet 600 mg PO Q6H PRNQty: 60 0RF Continued magnesium 250 mg tablet 250 mg PO QDAY 1 tab PO DAILY Discharge Orders: Discharge Order (Routine); Ordered 01/13/25 Ordered By: Lesa Valenzuela Patient Education: OB Over the Counter Medication Information, OB Vaginal/Breast Feeding Additional Instructions: Discharge instructions were reviewed with the patient including signs and symptoms of infection and home going medications Nothing vaginally for 6 weeks: no tampons or intercourse Do not drive while taking narcotic pain medication(s) Off Work or School for 6 weeks Symptoms to report to doctor: * Bleeding that saturates more than one pad per hour * Passing clots larger than the size of a golf ball * Pain not relieved by prescribed medication * Fever above 100.4 degrees Fahrenheit * A foul vaginal odor * Difficulty in emotions, mood, and functions * Thoughts of hurting yourself and/or * Painful, reddened area in your breast * Any drainage, redness, or tenderness in your IV/epidural site * Severe headache that doesn't improve after taking medications * Changes in vision, including temporary loss of vision, blurred vision, and/or light sensitivity * Upper abdominal pain (usually under ribs on the right side) * Decrease in urination or painful, frequent urinating * Chest pain * Shortness of breath * Tenderness or pain with redness and/swelling in the calf(s) of your leg 2-week visit: discuss feeding concerns, review control options and screen for anxiety/depression. 6-week visit for an annual exam. consultation services are available to all mothers and babies for the first year after delivery.? To make an appointment, please call [phone]. Activity Level: Activity as Tolerated and No strenuous activity Discharge Diet: Regular Follow Up Appointments: [facility] [Provider Group] Forms: Patient Belongings, MyHealth Info Instructions
[2025-01-13] MEDS: DOCUSATE SODIUM 100 MG CAPSULE PO (09:02)
[2025-01-13] MEDS: IBUPROFEN 600 MG TABLET PO (09:02)
[2025-01-13 10:54] VITALS: BP 108/70; PULSE 94; RESP 20; O2SAT 95
== END 2025-01-13 16:35 | disposition home or self-care (01) | DRG 560 ==
PROVIDERS: Admitting Provider Obstetrics & Gynecology; Visit Provider Obstetrics & Gynecology
DX: O48.0 Post-term pregnancy (principal); O99.824 Streptococcus B carrier state complicating childbirth; O99.02 Anemia complicating childbirth; D64.9 Anemia, unspecified; O26.893 Other specified pregnancy related conditions, third trimester; Z67.11 Type A blood, Rh negative; Z37.0 Single live birth; Z3A.41 41 weeks gestation of pregnancy
CPT/HCPCS: 36415; 85018; 85025; 85461; 86592; 86850; 86870; 86880; 86900; 86901; A9270; J0290; J1885; J2791; J7120